=== PATIENT | male | born 1965 ===

== ENCOUNTER 2024-09-24 08:54 | Day surgery (SDC) | payer OTHER ==
[2024-09-24] MEDS ORDERED: DIPHENHYDRAMINE HCL 50 MG/ML VIAL 1ML IV ONE ×2 (16:00)
[2024-09-24] MEDS ORDERED: MIDAZOLAM HCL 2 MG/2 ML VIAL IV ONE (16:00)
[2024-09-24] MEDS ORDERED: fentaNYL CITRATE 50 MCG/ML AMPUL IV PUSH ONE (16:00)
== END 2024-09-24 16:40 | disposition home or self-care (01) ==
LOC: AMB-ENDOS 08:54
PROVIDERS: ATTEND Internal Medicine
DX: D12.4 Benign neoplasm of descending colon (principal); D12.3 Benign neoplasm of transverse colon; K63.5 Polyp of colon; K57.30 Diverticulosis of large intestine without perforation or abscess without bleeding; K64.4 Residual hemorrhoidal skin tags